=== PATIENT | female | born 1950 | race Caucasian/White ===

== ENCOUNTER 2019-10-13 09:47 | Emergency (ER) | payer MEDICARE, BC ==
[~2019-10-13] VITALS: Ht 152.4 cm; Wt 50.4 kg
[2019-10-13] MEDS ORDERED: LOVASTATIN10 MG PO (09:59)
[2019-10-13] MEDS ORDERED: SERTRALINE HCL25 MG PO (09:59)
[2019-10-13] MEDS ORDERED: LEVOTHYROXINE25 MCG PO (09:59)
[2019-10-13] MEDS ORDERED: LACTULOSE10 GM/15 M PO (10:57)
--- NOTE | 2019-10-13 15:42 | EKG ---
[facility] [address] [facility] [place] [address] Signed Sinus bradycardia Right atrial enlargement Borderline ECG No previous ECGs available Confirmed by KVNG DE LEON MD ([id number]) on 10/13/2019 3:42:03 PM Electronically Signed By: KVNG DE LEON MD 10/13/19 1542 PATIENT NAME: BRANDEN RANDALL Electrocardiogram DATE OF : 52 PHYSICIAN: KVNG DE LEON MD REPORT #: [id number] REPORT IS CONFIDENTIAL AND NOT TO BE RELEASED WITHOUT AUTHORIZATION
== END 2019-10-13 11:39 | disposition home or self-care (01) ==
LOC: ED 09:47
DX: K59.03 Drug induced constipation (principal); T43.225A Adverse effect of selective serotonin reuptake inhibitors, initial encounter
CPT/HCPCS: 74022; 80053; 83690; 84484; 85025; 93005; 93010; 96374; 99284-25; J2060

== ENCOUNTER 2020-12-03 14:33 | Emergency (ER) | payer MEDICARE, BC ==
[~2020-12-03] VITALS: Ht 152.4 cm; Wt 53.5 kg
[~2020-12-03 14:33] MED LIST: LACTULOSE10 GM/15 M PO; LEVOTHYROXINE25 MCG PO; LOVASTATIN10 MG PO; SERTRALINE HCL25 MG PO
--- OUTSIDE RECORDS SUMMARY | 2020-12-03 14:36 | XMS ---
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 Guerrero has no Care Guidelines for this patient. Maritza VISIT COUNT (12 MO.) 1 [facility] TOTAL 1 NOTE: Visits indicate total known visits. ED/C VISIT TRACKING (12 MO.) 12/03/2020 14:33 [facility] [place] TYPE: Emergency COMPLAINT: - L THIGH LACERATION INPATIENT VISIT TRACKING (12 MO.) No inpatient visits to display in this time frame [id number]
[2020-12-03] MEDS ORDERED: CEPHALEXIN500 M1 PO (15:07)
== END 2020-12-03 15:43 | disposition home or self-care (01) ==
LOC: ED 14:33
DX: S31.114D Laceration without foreign body of abdominal wall, left lower quadrant without penetration into peritoneal cavity, subsequent encounter (principal); L03.314 Cellulitis of groin; E78.00 Pure hypercholesterolemia, unspecified; E03.9 Hypothyroidism, unspecified; Z79.899 Other long term (current) drug therapy
CPT/HCPCS: 99283

== ENCOUNTER 2021-02-24 11:54 | Emergency (ER) | payer MEDICARE, BC, OTHER ==
[~2021-02-24] VITALS: Ht 152.4 cm; Wt 53.5 kg
[~2021-02-24 11:54] MED LIST changes: +CEPHALEXIN500 M1 PO
--- OUTSIDE RECORDS SUMMARY | 2021-02-24 11:56 | XMS ---
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 ERayne VISIT COUNT (12 MO.) 2 [facility] TOTAL 2 NOTE: Visits indicate total known visits. ED/UCC VISIT TRACKING (12 MO.) 02/24/2021 11:[address] [facility] [place] TYPE: Emergency COMPLAINT: - ABD PAIN 12/03/2020 14:[address] [facility] [place] TYPE: Emergency COMPLAINT: - L THIGH LACERATION DIAGNOSES: - Pure hypercholesterolemia, unspecified - Hypothyroidism, unspecified - Other fdc (current) drug therapy - Laceration without foreign body of abdominal wall, left lower quadrant without penetration into peritoneal cavity, subsequent encounter - Cellulitis of groin INPATIENT VISIT TRACKING (12 MO.) No inpatient visits to display in this time frame [id number]
[2021-02-24] MEDS ORDERED: LOVENOX80 MG/0.8 SUB-Q (14:12)
[2021-02-24] MEDS ORDERED: CEPHALEXIN250 MG/5 M PO (14:12)
[2021-02-24] MEDS ORDERED: SERTRALINE HCL100 MG PO (14:51)
[2021-02-24] MEDS ORDERED: CLONAZEPAM0.5 MG PO (14:51)
[2021-02-24] MEDS ORDERED: ALENDRONATE SOD70 MG PO (14:52)
[2021-02-24] MEDS ORDERED: LOVASTATIN20 MG PO (14:53)
[2021-02-24] MEDS ORDERED: LEVOTHYROXINE75 MCG PO (14:53)
[2021-02-24] MEDS ORDERED: QUETIAPINE FUMA25 MG PO (14:54)
== END 2021-02-24 15:24 | disposition home or self-care (01) ==
LOC: ED 11:54
DX: N30.90 Cystitis, unspecified without hematuria (principal); I82.411 Acute embolism and thrombosis of right femoral vein; E78.00 Pure hypercholesterolemia, unspecified; E03.9 Hypothyroidism, unspecified; Z79.899 Other long term (current) drug therapy
CPT/HCPCS: 74177; 80053; 81001; 83690; 85025; 96375; 99284-25; J0696; J1650; J2060; J7030; Q9967

== ENCOUNTER 2021-03-01 10:10 | Emergency (ER) | payer MEDICARE, BC, OTHER ==
[~2021-03-01] VITALS: Ht 152.4 cm; Wt 53.5 kg
[~2021-03-01 10:10] MED LIST changes: +ALENDRONATE SOD70 MG PO; +CEPHALEXIN250 MG/5 M PO; +CLONAZEPAM0.5 MG PO; +LEVOTHYROXINE75 MCG PO; +LOVASTATIN20 MG PO; +LOVENOX80 MG/0.8 SUB-Q; +QUETIAPINE FUMA25 MG PO; +SERTRALINE HCL100 MG PO
--- OUTSIDE RECORDS SUMMARY | 2021-03-01 10:12 | XMS ---
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 Maritza VISIT COUNT (12 MO.) 3 [facility] TOTAL 3 NOTE: Visits indicate total known visits. ED/UCC VISIT TRACKING (12 MO.) 03/01/2021 10:10 [facility] [place] TYPE: Emergency COMPLAINT: - MULTIPLE PAIN COMPLAINS 02/24/2021 11:55 [facility] [place] TYPE: Emergency COMPLAINT: - ABD PAIN DIAGNOSES: - Acute embolism and thrombosis of right femoral vein - Hypothyroidism, unspecified - Cystitis, unspecified without hematuria - Other fci (current) drug therapy - Pure hypercholesterolemia, unspecified - Right lower quadrant pain 12/03/2020 14:33 [facility] [place] TYPE: Emergency COMPLAINT: - L THIGH LACERATION DIAGNOSES: - Pure hypercholesterolemia, unspecified - Hypothyroidism, unspecified - Other fci (current) drug therapy - Laceration without foreign body of abdominal wall, left lower quadrant without penetration into peritoneal cavity, subsequent encounter - Cellulitis of groin INPATIENT VISIT TRACKING (12 MO.) No inpatient visits to display in this time frame [id number]
[2021-03-01] MEDS ORDERED: ULTRAM50 MG PO (11:14)
[2021-03-01] MEDS ORDERED: COLACE100 MG PO (11:24)
[2021-03-01] MEDS ORDERED: LAXATIVE5 M1 PO (11:24)
== END 2021-03-01 11:37 | disposition home or self-care (01) ==
LOC: ED 10:10
DX: I82.401 Acute embolism and thrombosis of unspecified deep veins of right lower extremity (principal); E78.00 Pure hypercholesterolemia, unspecified; E03.9 Hypothyroidism, unspecified; Z79.899 Other long term (current) drug therapy
CPT/HCPCS: 99283; J7040

== ENCOUNTER 2021-03-10 16:54 | Emergency (ER) | payer MEDICARE, BC, OTHER ==
[~2021-03-10] VITALS: Ht 152.4 cm; Wt 53.5 kg
[~2021-03-10 16:54] MED LIST changes: +COLACE100 MG PO; +LAXATIVE5 M1 PO; +ULTRAM50 MG PO
--- OUTSIDE RECORDS SUMMARY | 2021-03-10 16:56 | XMS ---
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 Maritza VISIT COUNT (12 MO.) 4 [facility] TOTAL 4 NOTE: Visits indicate total known visits. ED/UCC VISIT TRACKING (12 MO.) 03/10/2021 16:54 [facility] [place] TYPE: Emergency COMPLAINT: - ABD PAIN 03/01/2021 10:10 [facility] [place] TYPE: Emergency COMPLAINT: - MULTIPLE PAIN COMPLAINS DIAGNOSES: - Other salvage determiner (current) drug therapy - Pure hypercholesterolemia, unspecified - Hypothyroidism, unspecified - Acute embolism and thrombosis of unspecified deep veins of right lower extremity 02/24/2021 11:55 [facility] [place] TYPE: Emergency COMPLAINT: - ABD PAIN DIAGNOSES: - Acute embolism and thrombosis of right femoral vein - Hypothyroidism, unspecified - Cystitis, unspecified without hematuria - Other salvage determiner (current) drug therapy - Pure hypercholesterolemia, unspecified - Right lower quadrant pain 12/03/2020 14:33 [facility] [place] TYPE: Emergency COMPLAINT: - L THIGH LACERATION DIAGNOSES: - Pure hypercholesterolemia, unspecified - Hypothyroidism, unspecified - Other salvage determiner (current) drug therapy - Laceration without foreign body of abdominal wall, left lower quadrant without penetration into peritoneal cavity, subsequent encounter - Cellulitis of groin INPATIENT VISIT TRACKING (12 MO.) No inpatient visits to display in this time frame [id number]
[2021-03-10] MEDS ORDERED: MIRALAX17 GM PO (20:18)
== END 2021-03-10 20:40 | disposition home or self-care (01) ==
LOC: ED 16:54
DX: K59.00 Constipation, unspecified (principal); E78.00 Pure hypercholesterolemia, unspecified; E03.9 Hypothyroidism, unspecified; Z79.890 Hormone replacement therapy; Z79.899 Other long term (current) drug therapy
CPT/HCPCS: 74018; 99283-25